=== PATIENT | male | born 1955 | race Caucasian/White ===

== ENCOUNTER 2017-10-16 15:50 | Inpatient (IN) | payer OTHER ==
[~2017-10-16] VITALS: Ht 182.9 cm; Wt 110.1 kg
[2017-10-16] VITALS (10 sets, daily range): BP systolic 96–130; BP diastolic 44–67
[~2017-10-16 15:50] MED LIST: ASPIR 8181 MG PO; CELEXA20 MG PO; OXCARBAZEPINE300 M1 PO; PERPHENAZINE8 MG PO; TRILEPTAL150 MG PO; WELLBUTRIN SR150 MG PO
[2017-10-16 16:14] LABS: ABSOLUTE BASOPHILS 0.1 thou/uL (0.0-0.2); ABSOLUTE EOSINOPHILS 0.2 thou/uL (0.0-0.7); ABSOLUTE LYMPHOCYTES 3.5 thou/uL (0.8-5.3); ABSOLUTE MONOCYTES 0.8 thou/uL (0.0-1.2); ABSOLUTE NEUTROPHILS 5.7 thou/uL (1.6-8.1); BASOPHILS 0.6 %; EOSINOPHILS 2.4 %; HEMOGLOBIN 14.8 gm/dL (14.0-18.0); LYMPHOCYTES 33.8 %; MCH 28.1 pg (26.0-34.0); MCHC 33.7 g/dL (28.0-37.0); MCV 83.4 fL (80.0-100.0); MONOCYTES 7.9 %; MPV 6.6 fl. (7.2-11.1); NUCLEATED RBCS 0 /100WBC; PLATELET COUNT* 291 thou/uL (150-400); POLYS 55.3 %; RBC 5.28 mil/uL (4.50-6.00); RDW-CV 17.2 % (10.5-14.5); WBC 10.4 thou/uL (4.0-11.0)
[2017-10-16 16:20] LABS: ANION GAP 9 mmol/L (7-16); BUN 29 mg/dL (7-18); CALCIUM 8.8 mg/dL (8.5-10.1); CHLORIDE 103 mmol/L (98-107); CO2 27 mmol/L (21-32); CREATININE 1.8 mg/dL (0.6-1.3); GLUCOSE 98 mg/dL (70-99); POTASSIUM 3.2 mmol/L (3.5-5.1); SODIUM 139 mmol/L (136-145)
[2017-10-16 16:22] LABS: APTT 27.1 Seconds (25.0-31.3); PROTIME 10.2 Seconds (9.20-11.50)
[2017-10-16 16:29] LABS: TROPONIN-I LEVEL <0.06 ng/mL (<0.06)
[2017-10-17] VITALS (43 sets, daily range): BP systolic 112–1125; BP diastolic 52–85
[2017-10-17 06:11] LABS: HEMATOCRIT 43.1 % (42.0-52.0); HEMOGLOBIN 14.3 gm/dL (14.0-18.0); MCH 27.9 pg (26.0-34.0); MCHC 33.1 g/dL (28.0-37.0); MCV 84.2 fL (80.0-100.0); MPV 6.8 fl. (7.2-11.1); NUCLEATED RBCS 0 /100WBC; PLATELET COUNT* 283 thou/uL (150-400); RBC 5.12 mil/uL (4.50-6.00); RDW-CV 17.3 % (10.5-14.5); WBC 13.8 thou/uL (4.0-11.0)
[2017-10-17 06:30] LABS: CHOLESTEROL 207 mg/dL (<200); HDL CHOLESTEROL 41 mg/dL (>40); LDL CHOLESTEROL 138 mg/dL (<100); SERUM ASSESSMENT Clear; TRIGLYCERIDE 141 mg/dL (<150); VLDL 28 mg/dL (<40)
[2017-10-17 06:31] LABS: ALBUMIN 3.4 g/dL (3.4-5.0); CALCIUM 8.8 mg/dL (8.5-10.1); CREATININE 2.1 mg/dL (0.6-1.3); TOTAL BILIRUBIN 0.6 mg/dL (<0.1-1.0); TOTAL PROTEIN 6.5 g/dL (6.4-8.2)
[2017-10-17 06:33] LABS: POTASSIUM 4.7 mmol/L (3.5-5.1)
[2017-10-17 06:34] LABS: TROPONIN-I LEVEL 24.86 ng/mL (<0.06)
[2017-10-17 06:49] LABS: ABSOLUTE LYMPHOCYTES 1.1 thou/uL (0.8-5.3); ABSOLUTE MONOCYTES 0.6 thou/uL (0.0-1.2); ABSOLUTE NEUTROPHILS 12.1 thou/uL (1.6-8.1); ANISOCYTOSIS 1+; PLATELET ESTIMATE ADEQUATE; POIKILOCYTOSIS 1+
--- NOTE | 2017-10-17 09:39 | EKG ---
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 : 1955 Requested By: Grabiel Pappas Order Number: [id number] MD: Tevin Borrego Measurements Intervals [place] Rate: 57 P: 18 OK: 208 QRS: 64 QRSD: 116 T: 131 QT: 468 QTc: 456 Interpretive Statements Sinus rhythm Borderline prolonged OK interval Nonspecific intraventricular conduction delay Abnormal inferior Q waves Repol abnrm suggests ischemia, diffuse leads Compared to ECG 05/08/2016 21:04:54 Intraventricular conduction delay now present Inferior Q waves now present Q waves now present Early repolarization now present Possible ischemia now present Myocardial infarct finding no longer present Prolonged QT interval no longer present Electronically Signed On 10-17-2017 9:38:58 CDT by Tevin Borrego [email or web address] <ELECTRONICALLY SIGNED> By: Tevin Borrego MD, [facility] 10/17/17 0938 1553 1553 Tevin Borrego MD, [facility] /EPI
--- NOTE | 2017-10-17 09:39 | EKG ---
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1955 Requested By: Isra Johnson Order Number: [id number] Reading MD: Tevin Borrego Measurements Intervals [place] Rate: 57 P: -23 NE: 183 QRS: 59 QRSD: 119 T: 139 QT: 473 QTc: 461 Interpretive Statements Sinus rhythm LVH with IVCD and secondary repol abnrm Probable inferior infarct, recent Compared to ECG 05/08/2016 21:04:54 Intraventricular conduction delay now present Left ventricular hypertrophy now present Early repolarization now present Prolonged QT interval no longer present Myocardial infarct finding still present Electronically Signed On 10-17-2017 9:39:25 CDT by Tevin Borrego [email or web address] <ELECTRONICALLY SIGNED> By: Tevin Borrego MD, FACC 10/17/17 0939 1806 1806 Tevin Borrego MD, FAC /EPI
--- NOTE | 2017-10-17 09:41 | EKG ---
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: : 1955 Requested By: Isra Johnson Order Number: [id number] Reading MD: Tevin Borrego Measurements Intervals [place] Rate: 71 P: 33 [place]: 183 QRS: 55 QRSD: 117 T: 85 QT: 474 QTc: 516 Interpretive Statements Sinus rhythm Left ventricular hypertrophy Inferior infarct, old Prolonged QT interval Compared to ECG 05/08/2016 21:04:54 Left ventricular hypertrophy now present Myocardial infarct finding still present Electronically Signed On 10-17-2017 9:40:51 CDT by Tevin Borrego [email or web address] <ELECTRONICALLY SIGNED> By: Tevin Borrego MD, [facility] 10/17/17 0940 0 0 Tevin Borrego MD, [facility] /EPI
--- NOTE | 2017-10-17 16:03 | TEE ---
[place] [address] TRANSESOPHAGEAL ECHOCARDIOGRAM Name: JOHNAANACHO Rainey Room: [address] IN [facility]#: [id number] Admission: 10/16/17 Attend Phys: Darryn Tesfaye Discharge: Date of : 59 Date of Service: 10/17/17 1603 Report #: [id number] THIS REPORT FOR: //name// APPROVED REPORT Study performed: 10/17/2017 13:30:05 EXAM: Transesophageal Echocardiogram Patient Location: In-Patient Room #: [facility] Status: routine BSA: 2.31 HR: 77 bpm BP: 122/61 mmHg Rhythm: NSR Other Information Study Quality: Good Indications Aortic dissection Procedure After obtaining informed consent, patient underwent transesophageal echo in the Bedside. Type of Sedation : Conscious Sedation Sedation was administered by Nava Alvarez RN. Sedation start time: 1330 Case end Time: 1340 Sedation was achieved intravenously with: Versed (2) Fentanyl (25) Transesophageal probe was inserted and advanced into esophagus without difficulty by Tevin Borrego MD, [facility]. The NIC was performed without complications. Throughout the procedure, the blood pressure, pulse oximetry, cardiac rhythm, and rate were monitored. The patient tolerated the procedure without adverse effects. Recovery from conscious sedation was uneventful and vital signs were stable. Left Ventricle The left ventricle is normal size. the base of the inferior wall is moderately hypokinetic, the apex is hypokinetic There is normal left ventricular wall thickness. Left ventricular systolic function is normal. The left ventricular ejection fraction is within the normal range. No left ventricle thrombus noted on this study. [facility] is [address] [address] TRANSESOPHAGEAL ECHOCARDIOGRAM Name: NACHO VAUGHN Room: [address] IN [facility].#: [id number] Admission: 10/16/17 Attend Phys: Darryn Tesfaye Discharge: Date of : 59 Date of Service: 10/17/17 1603 Report #: [id number] 45-50% Right Ventricle The right ventricle is normal size. The right ventricular systolic function is normal. Atria No thrombus is visualized in the left atrium or appendage. The right atrium size is normal. Aortic Valve The aortic valve is normal in structure. Severe aortic regurgitation. There is no aortic valvular stenosis. Mitral Valve The mitral valve is normal in structure. Trace mitral regurgitation. No evidence of mitral valve stenosis. Tricuspid Valve The tricuspid valve is not well visualized. Pulmonic Valve Pulmonic valve is not well visualized. Great Vessels Aortic root is dilated.Approximately 5cm in the ascending aorta.4.4 cm at the sinus. There is a large dissection flap involving the sinus of valsalva , and extends to descending aorta.There appears to be a hematoma near the sinus,posterior aspect. Pericardium There is no pericardial effusion. <Conclusion> The left ventricle is normal size.Ejection fraction is 45-50% There is no aortic valvular stenosis. Severe aortic regurgitation. There is a large dissection flap involving the sinus of valsalva , and extends to descending aorta.There appears to be a small hematoma near the sinus,posterior aspect of transvers viewpoint. Aortic root is dilated.Approximately 5cm in the ascending aorta.4.4 cm at the sinus. <ELECTRONICALLY SIGNED> By: Tevin Borrego MD, FACC 10/17/17 1603 1603 1603 Tevin Borrego MD, FACC /INF
--- NOTE | 2017-10-17 16:27 | 2DMMODE ---
[place] [address] 2 D/M-MODE ECHOCARDIOGRAM Name: NACHO VAUGHN Room: [address] IN [facility]#: [id number] Admission: 10/16/17 Attend Phys: Darryn Tesfaye Discharge: Date of : 59 Date of Service: 10/17/17 1627 Report #: [id number] THIS REPORT FOR: //name// APPROVED REPORT Study performed: 10/17/2017 11:23:10 EXAM: Comprehensive 2D, Doppler, and color-flow Echocardiogram Patient Location: In-Patient Room #: 002 Status: routine BSA: 2.34 HR: 75 bpm BP: 123/66 mmHg Rhythm: NSR Other Information Study Quality: Good Indications Acute DC 2D Dimensions LVEF(%): 32.19 (>50%) IVSd: 19.56 (7-11mm) LVOT Diam: 23.14 (18-24mm) LVDd: 54.42 mm PWd: 9.73 (7-11mm) Ascending Ao: 48.77 (22-36mm) LVDs: 46.04 (25-40mm) Aortic Root: 42.93 mm [place]'s LVEF: 32.19 % Volumes Left Atrial Volume (Systole) LA ESV Index: 26.20 mL/m2 Aortic Valve AoV Peak Sarabjit.: 1.43 m/s AO Peak Gr.: 8.23 mmHg LVOT Max P.80 mmHg AO Mean Gr.: 4.49 mmHg LVOT Mean P.08 mmHg LVOT Max V: 1.10 m/s AO V2 VTI: 26.95 cm LVOT Mean V: 0.65 m/s LAITH (VTI): 2.97 cm2 LVOT V1 VTI: 19.07 cm Mitral Valve E/A Ratio: 0.66 [place] [address] 2 D/M-MODE ECHOCARDIOGRAM Name: JOHANANACHO Room: [address] IN [facility].#: [id number] Admission: 10/16/17 Attend Phys: Darryn Tesfaye Discharge: Date of : 59 Date of Service: 10/17/17 1627 Report #: [id number] MV Decel. Time: 169.90 ms MV E Max Sarabjit.: 0.47 m/s MV PHT: 49.27 ms MVA (PHT): 4.47 cm2 TDI E/Lateral E': 4.70 Lateral E' Sarabjit.: 0.10 m/s Left Ventricle The left ventricle is normal size. Regional wall motion abnormalities are noted with inferobasilar hypo-akinesis. Mild concentric left ventricular hypertrophy. Left ventricular systolic function is mildly decreased. LVEF is 45-50%. The left ventricular diastolic function is normal. Right Ventricle The right ventricle is normal size. The right ventricular systolic function is normal. Atria The left atrium size is normal. The right atrium size is normal. Aortic Valve Mild aortic valve sclerosis. Moderate aortic regurgitation. There is no aortic valvular stenosis. Mitral Valve The mitral valve is normal in structure. There is no mitral valve regurgitation noted. No evidence of mitral valve stenosis. Tricuspid Valve The tricuspid valve is normal in structure. Unable to assess PA pressure. Pulmonic Valve The pulmonary valve is normal in structure. There is no pulmonic valvular regurgitation. Great Vessels Aortic root is moderately dilated. There is a dissection flap noted in the proximal aortic root Ascending aorta is moderately dilated Aortic dissection is present. IVC [place] [address] 2 D/M-MODE ECHOCARDIOGRAM Name: NACHO VAUGHN Brigid Room: [address] IN [facility]#: [id number] Admission: 10/16/17 Attend Phys: Darryn Tesfaye Discharge: Date of : 59 Date of Service: 10/17/17 1627 Report #: [id number] Pericardium There is no pericardial effusion. <Conclusion> The left ventricle is normal size. Mild concentric left ventricular hypertrophy. Left ventricular systolic function is mildly decreased. LVEF is 45-50%. The left ventricular diastolic function is normal. The right ventricle is normal size. The left atrium size is normal. Mild aortic valve sclerosis. Moderate aortic regurgitation. There is no aortic valvular stenosis. The mitral valve is normal in structure. The tricuspid valve is normal in structure. Aortic root is moderately dilated. There is a dissection flap noted in the proximal aoric root IVC is not well visualized. Regional wall motion abnormalities are noted with inferobasilar hypo-akinesis. Ascending aorta is moderately dilated Aortic dissection is present. <ELECTRONICALLY SIGNED> By: Tevin Borrego MD, FACC 10/17/17 1627 162 162 Tevin Borrego MD, FACC /INF
[2017-10-18] VITALS (13 sets, daily range): BP systolic 136–151; BP diastolic 59–87
[2017-10-18 04:55] LABS: CALCIUM 8.5 mg/dL (8.5-10.1); CREATININE 2.1 mg/dL (0.6-1.3); POTASSIUM 4.5 mmol/L (3.5-5.1)
[2017-10-18 05:26] LABS: TROPONIN-I LEVEL 45.08 ng/mL (<0.06)
--- NOTE | 2017-10-18 15:28 | D ---
[address] [address] DISCHARGE SUMMARY Name: NACHO VAUGHN Room: [address] IN M.R.#: [id number] Admission: 10/16/17 Attend Phys: Isra Johnson MD, Discharge: 10/18/17 Date of : 59 Report #: [id number] THIS REPORT FOR: //name// CC: BETZAIDA physician/PCP Isra Johnson DATE OF SERVICE: 10/18/2017 SUMMARY FINAL DISCHARGE DIAGNOSES: 1. Acute aortic dissection involving the ascending aorta and extending retrograde to the base of the aorta involving the right coronary and aortic valve with consequent aortic insufficiency and acute inferior infarction. 2. Acute myocardial infarction as noted above. 3. Severe aortic insufficiency as documented by transesophageal echocardiogram. 4. Hyperlipoproteinemia. 5. Mild ischemic cardiomyopathy. 6. Schizoaffective disorder. 7. Exogenous obesity. PROCEDURES: 1. 10/16/2017 -- left heart catheterization, left ventriculography, selective coronary arteriography. 2. 10/17/2017 -- transesophageal echocardiography. The patient is a 62-year-old male with schizoaffective disorder, who has been predominantly inactive in his recliner the majority of the days. He developed severe central chest discomfort on the afternoon of 10/16/2017 and sought assistance from the [facility] Emergency Room. He had diffuse ST segment abnormalities, most prominent in the inferior leads with inferior elevation, but present in the anterior precordial and high lateral leads as well. In the context of the chest discomfort and the abnormal electrocardiogram, he was taken emergently to the catheterization suite where he underwent cardiac catheterization. That study revealed total occlusion of the right coronary artery proximally with an abnormal origin with 75-80% proximal LAD stenosis prominent left to right collaterals filling the distal right coronary artery. Left ventriculography demonstrated ejection fraction of 45-50% with inferobasilar hypo to akinesis. There was marked turbulence above the valve and echocardiographic evaluation the next morning suggested an intimal flap in the ascending aorta. Transesophageal echocardiographic assessment was performed urgently thereafter and it confirmed aortic dissection with intramural hematoma [place] [address] DISCHARGE SUMMARY Name: NACHO VAUGHN Brigid Room: [address] IN [facility]#: [id number] Admission: 10/16/17 Attend Phys: Isra Johnson MD, Discharge: 10/18/17 Date of : 59 Report #: [id number] above to the base of the aorta involving the aortic cusps with severe aortic insufficiency and the aforementioned inferior infarction as a consequence of the retrograde dissection. These issues were discussed with the patient and family and the need to proceed with emergent surgery, which would involve placement of a valve conduit as well as coronary artery bypass grafting. This was considered on several occasions with the patient and he elected not to undergo emergent complex surgery as outlined above. On the a.m. of 10/18/2017, he suddenly developed profound hypotension and dyspnea and developed pulseless electrical activity. He was not resuscitable, and ultimately on 10/18/2017 at 1050 hours. This situation was discussed at this point with the patient's family. <ELECTRONICALLY SIGNED> By: Isra Johnson MD, [facility] 10/18/17 1528 1106 1214Isra Johnson MD, FACC /nt
--- NOTE | 2017-10-21 11:53 | CARD ---
[address] [address] CARDIAC CATH REPORT Name: NACHO VAUGHN Brigid Room: [address] IN ..#: [id number] Admission: 10/16/17 Attend Phys: Isra Johnson MD, Discharge: 10/18/17 Date of : 59 Report #: [id number] THIS REPORT FOR: //name// APPROVED REPORT Study performed: 10/16/2017 16:21:30 Patient Details Patient Status: ED Room #: The patient is a 62 year-old male Event Personnel Isra Johnson Medicaid Nurse, Celine Benton Dog Walker, Gloria Burk RTR Monitor, Rachid Ding Scrub Procedures Performed Art Access - R femoral artery* Left Heart Cath w/or w/o Coronaries [facility] Indication Non-STEMI Procedure Narrative The patient was brought emergently to the Cardiac Catheterization Laboratory and was prepped and draped in a sterile manner. The right femoral was infiltrated with 1% Lidocaine subcutaneous anesthesia. A [place] 6 FR sheath was inserted into the right femoral artery. Coronary angiography was performed using coronary diagnostic catheters. The right coronary system was accessed and visualized with a 6F 3DRCGuide catheter. The left coronary system was accessed and visualized with a Diagnostic 6FR JL4 catheter. The left ventricle was accessed and visualized with a Diagnostic 6FR STRAIGHT PIGTAIL catheter. Left ventricular/Aortic Valve gradient assessed via catheter pullback. An aortogram of the LIMA was performed. Hemostasis was obtained with manual pressure following sheath removal without any complications. The patient tolerated the procedure well and there were no complications associated with the procedure. There was no hematoma. Dose: 98.1 mGy Contrast Type and Amount: Visipaque 140 ml Coronary Angiography The patient's coronary [place] [address] CARDIAC CATH REPORT Name: NACHO VAUGHN Brigid Room: [address]#: [id number] Admission: 10/16/17 Attend Phys: Isra Johnson MD, Discharge: 10/18/17 Date of : 59 Report #: [id number] Diagnostic Cath Left Main 0% narrowing LAD 95% proximal stenosis Circumflex 30% proximal narrowing Right Coronary 100% proximal occlusion with [id number] collaterals of the septum filling the distal right coronary artery Left Ventriculography The left ventricle is normal in size with contractility. The left ventricular ejection fraction is estimated to be 50%. Inferobasilar hypo-and akinesis is noted Hemodynamics The aortic pressure is 96/35 mmHg with a mean of 55 mmHg. The left ventricular pressure is 92/6 mmHg with a mean of mmHg. The left ventricular end diastolic pressure is 22 mmHg. Pullback from the left ventricle to the aorta revealed no gradient across the aortic valve. PCI Technique Lesion A 6F 3DRC Guide Catheter was used to engage the ostium. A IG: Cuil Flex 300cm Interventional Guidewire was used to cross the lesion. BALLOON DILATION A Balloon catheter Mini Trek OTW 2X12 was inserted and inflated up to susanna for seconds. NO DIALATION TOOK PLACE Conclusion #1 significant coronary artery disease characterized by the following: A 75% proximal LAD stenosis B 30% narrowing of the proximal portion of the nondominant circumflex C total occlusion of the dominant right coronary artery proximally with left to right collateral filling the distal right coronary artery #2 mild reduction in global left ventricular systolic function, estimated ejection fraction 50% with inferobasilar hypo-to akinesis #3 moderate elevation of left ventricular end[place] [address] CARDIAC CATH REPORT Name: NACHO VAUGHN Room: [address]#: [id number] Admission: 10/16/17 Attend Phys: Isra Johnson MD, Discharge: 10/18/17 Date of : 59 Report #: [id number] rest #4 given the atypical presentation and angiographic findings, I elected not to proceed with percutaneous coronary intervention in the acute setting Diagnostic Cath Approved by: Isra Johnson MD Date/Time: 10/21/2017 11:52:28 <ELECTRONICALLY SIGNED> By: Isra Johnson MD, [facility] 10/21/17 1152 1152 1152Jofarheen Johnson MD, FACC /INF
--- NOTE | 2017-10-27 15:37 | H ---
[address] [address] HISTORY AND PHYSICAL Name: NACHO VAUGHN Brigid Room: [address] IN .R.#: [id number] Admission: 10/16/17 Attend Phys: Isra Johnson MD, Discharge: 10/18/17 Date of : 59 Report #: [id number] THIS REPORT FOR: //name// CC: BETZAIDA physician/PCP Isra Johnson DATE OF SERVICE: 10/16/2017 The patient is a 62-year-old male who presented to the ER with severe chest pain. He had a history of schizoaffective disorder and hyperlipidemia. He had developed a sudden onset of chest discomfort and presented in the early evening to the Emergency Room with EKG changes in the inferior, anterior and lateral leads suggesting ischemia or injury. He had persistent pain despite analgesic and nitrite therapy. The patient gave no history of prior chest pain of this kind. There was a questionable prior cigarette smoking history and question hyperlipoproteinemia. At the time of my examination, he continued to describe severe central chest discomfort. PHYSICAL EXAMINATION: GENERAL: Reveals an overweight, distressed male. VITAL SIGNS: Blood pressure 130/70, pulse rate 68, respirations 18 per minute. NECK: Jugular venous pressure normal. CHEST: Clear. CARDIAC: Reveals normal first and second heart sounds with soft early systolic murmur and a question of early diastolic murmur. ABDOMEN: Obese. EXTREMITIES: Satisfactorily perfused with good femoral pulses. Electrocardiogram revealed inferior Q-waves with inferior ST elevation and anterior and high lateral ST segment alterations suggesting ischemia or injury. IMPRESSION: 1. Acute coronary syndrome. 2. Severe and unrelenting chest discomfort. 3. Schizoaffective disorder. 4. Probable hyperlipoproteinemia. RECOMMENDATIONS: Given the aforementioned clinical scenario of persistent chest pain and marked diffuse electrocardiographic changes, I would recommend emergent catheterization to define current coronary anatomy [place] [address] HISTORY AND PHYSICAL Name: NACHO VAUGHN Room: [address]#: [id number] Admission: 10/16/17 Attend Phys: Isra Johnson MD, Discharge: 10/18/17 Date of : 59 Report #: [id number] therapeutic intervention. This was discussed with the patient, we will plan to proceed with urgent catheterization. <ELECTRONICALLY SIGNED> By: Isra Johnson MD, FACC 10/27/17 1537 1051 1117Isra Johnson MD, FACC /nt
== END 2017-10-18 10:50 | DRG 250 ==
LOC: M.ERS 15:50 → M.CL 15:50 → M.TBA-CV 17:56 → M.ICU 17:56
PROVIDERS: Emergency Medicine; Internal Medicine Cardiovascular Disease; ADMIT Internal Medicine
DX: I21.19 ST elevation (STEMI) myocardial infarction involving other coronary artery of inferior wall (principal); I50.21 Acute systolic (congestive) heart failure; I71.01 Dissection of thoracic aorta; I13.0 Hypertensive heart and chronic kidney disease with heart failure and stage 1 through stage 4 chronic kidney disease, or unspecified chronic kidney disease; E78.5 Hyperlipidemia, unspecified; I35.0 Nonrheumatic aortic (valve) stenosis; I25.5 Ischemic cardiomyopathy; N18.3 Chronic kidney disease, stage 3 (moderate); I25.10 Atherosclerotic heart disease of native coronary artery without angina pectoris; F25.0 Schizoaffective disorder, bipolar type; E66.09 Other obesity due to excess calories; Z68.32 Body mass index [BMI] 32.0-32.9, adult; Z90.49 Acquired absence of other specified parts of digestive tract; Z79.899 Other long term (current) drug therapy; Z82.49 Family history of ischemic heart disease and other diseases of the circulatory system